=== PATIENT | male | born 1975 | race Caucasian/White ===

== ENCOUNTER 2021-10-31 09:50 | Day surgery (SDC) | payer BC ==
[2021-10-31] MEDS ORDERED: Epinephrine Preservative Free 1 MG/ML IJ ONE (09:51)
[2021-10-31] MEDS ORDERED: LIDOCAINE HCL 1% 50 MG/5 ML VL PF IJ ONE (09:51)
[2021-10-31] MEDS ORDERED: cefUROXime sodium 0.005 GM in Sodium Chloride Flush 30 ML*** 0.5 ML IJ ONE (10:00)
[2021-10-31] MEDS ORDERED: Ak-Dilate OPHTHALMIC*** 1.065 ML, Cyclogyl 1% OPHTH SOL 1.065 ML, GATIFLOXACIN 0.5% OPH... OP ONE ×4 (10:00)
[2021-10-31] MEDS ORDERED: TETRACAINE 0.5% STERI-UNIT SOL OP ONE (10:00)
[2021-10-31] MEDS ORDERED: Lactated Ringers 1,000 ML IV SCH (10:00)
[2021-10-31] MEDS ORDERED: NON-FORMULARY ITEM OP ONE (10:00)
[2021-10-31] MEDS ORDERED: BETADINE 5% OPHTHALMIC 30 ML OP ONE (10:00)
[2021-10-31] MEDS: TETRACAINE 0.5% STERI-UNIT SOL OP ONE ×2 (10:28→11:14)
[2021-10-31] MEDS ORDERED: Lactated Ringers 1,000 ML IV ONE (10:31)
[2021-10-31] MEDS ORDERED: Versed 2 MG/2 ML Injection ONE (11:47)
[2021-10-31] MEDS ORDERED: DIPRIVAN 200 MG/20 ML IV ONE (12:03)
[2021-10-31 12:42] VITALS: PULSE 72; O2SAT 96
[2021-10-31 12:47] VITALS: BP 145/90
[2021-10-31] MEDS ORDERED: Zofran 4 MG/2 ML VIAL IV PRN (13:00)
[2021-10-31] MEDS ORDERED: ACETAZOLAMIDE 250 MG TABLET PO ONE (13:00)
== END 2021-10-31 12:48 | disposition home or self-care (01) ==
LOC: SDC 09:50
PROVIDERS: ATTEND Ophthalmology
DX: H25.812 Combined forms of age-related cataract, left eye (principal)
CPT/HCPCS: C1780; J0171; J2001; J2250; J2704; A9270-GY